=== PATIENT | female | born 2000 | race Asian ===

== ENCOUNTER 2018-01-15 02:05 | Emergency (ER) | payer SELFPAY ==
--- NOTE | 2018-01-15 03:47 | ED ---
Substance Abuse/Use - HPI Summary HPI Summary: HPI LIMITED DUE TO LEVEL 5 CAVEAT ETOH INTOXICATION This patient is a 17 year old F BIBA to [facility] with a chief complaint of ETOH intoxication that occurred [employer]. - History Of Current Complaint Chief Complaint: EDSubstanceAbuse Stated Complaint: ETOH Hx Obtained From: Patient Hx From Patient Unobtainable Due To: Other - ETOH INTOXICATION Ingestion History: Type/Name Of Drug - ETOH Overdose Characteristics: Oral - Allergies/Home Medications Allergies/Adverse Reactions: Allergies Allergy/AdvReac Type Severity Reaction Status Date / Time Unable to Assess Allergy Verified 01/15/18 02:10 Home Medications: Home Medications Unobtainable 01/15/18 [History Confirmed 01/15/18] PMH/Surg Hx/FS Hx/Imm Hx Previously Healthy: No - PMHx limited due to level 5 caveat - ETOH intoxication Infectious Disease History: No Infectious Disease History: Denies: Traveled Outside the [place] in Last 30 Days Review of Systems - ROS Summary Review of Systems Summary: ROS LIMITED DUE TO LEVEL 5 CAVEAT - ETOH INTOXICATION All Other Systems Reviewed And Are Negative: No Physical Exam - Summary Physical Exam Summary: Appearance: nontoxic appearing Skin: Warm, dry, no mottling, no rashes, no contusions HEENT: EOMI, PERRL Neck: No masses on the neck Respiratory: Clear to auscultation, breath sounds present, no rales, no rhonchi , no wheezes Cardiovascular: RRR, pulses are symmetrical in both lower and upper extremities Abdomen: Soft, non-tender Bowel Sounds: Present Musculoskeletal: No CVA tenderness, no obvious deformity, moving all extremities in a grossly normal manner Neurological: CN II-XII Intact Triage Information Reviewed: Yes Vital Signs On Initial Exam: Initial Vitals Temp Pulse Resp BP Pulse Ox 97.9 F 75 24 103/50 96 01/15/18 02:08 01/15/18 02:08 01/15/18 02:08 01/15/18 02:08 01/15/18 02:08 Vital Signs Reviewed: Yes Diagnostics - Vital Signs Vital Signs Temp Pulse Resp BP Pulse Ox 01/15/18 02:08 97.9 F 75 24 103/50 96 - Laboratory Lab Statement: Any lab studies that have been ordered have been reviewed, and results considered in the medical decision making process. Course/Dx - Course Course Of Treatment: LEVEL 5 CAVEAT ETOH INTOXICATION. 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 Physical Exam Findings: Nml. Bloodwork obtained. Patient will be signed out to Dr. Healy upon shift change pending sobering and disposition. The patient is agreeable with this plan. - Diagnoses Provider Diagnoses: Alcohol intoxication Discharge - Sign-Out/Discharge Documenting (check all that apply): Sign-Out Patient Signing out patient TO: Deion Healy - Upon shift change pending sobering and disposition - Discharge Plan Condition: Stable Attestations Scribe Attestation: This is isiah Berrios documenting for attending Viviana Frye MD. User Type: Provider with Scribe Provider Attestation: The documentation recorded by the scribe accurately reflects the service I personally performed and the decisions made by me.
--- NOTE | 2018-01-15 10:55 | ED ---
Progress - Progress Note Progress Note: This is scribe Papa Hawk documenting for attending Deion Healy. Patient was signed out to Dr. Healy via Dr. Frye during shift change at 0700 on 01/15/2018. Patient was awaiting sobriety and disposition. I, Dr. Healy, personally performed the services described in this documentation as scribed in my presence and it is both accurate and complete. Re-Evaluation - Re-Evaluation First Eval Re-Evaluation Time: 10:50 Change: Improved Comment: Patient is now clinically sober. Patient has steady gait. Patient will be going home in taxi. Course/Dx - Course Course Of Treatment: LEVEL 5 CAVEAT ETOH INTOXICATION. This patient is a 17 year old F BIBA to [facility] with a chief complaint of ETOH intoxication that occurred [employer]. Physical Exam Findings: Nml. Bloodwork obtained. Patient will be signed out to Dr. Healy upon shift change pending sobering and disposition. The patient is agreeable with this plan. At 1050, patient is clinically sober. steady gait. Patient will be going home in taxi. Patient will be discharged with a diagnosis of ETOH intoxication. Patient is to follow up with [facility] in 2-3 days. Patient is agreeable with this plan. - Diagnoses Provider Diagnoses: Alcohol intoxication Discharge - Sign-Out/Discharge Documenting (check all that apply): Patient Departure - DISCHARGE - Discharge Plan Condition: Stable Disposition: HOME Patient Education Materials: Alcohol Intoxication (ED), Abuse of Alcohol (ED) Referrals: [facility] - Jose Carlos BRUNNER [Medical Doctor] - 3 Days Additional Instructions: FOLLOW UP WITH [facility] IN 2-3 DAYS. RETURN TO ED FOR ANY NEW OR WORSENING SYMPTOMS.
[2018-01-15 11:17] VITALS: BP 108/78
== END 2018-01-15 11:17 | disposition home or self-care (01) ==
LOC: ED 02:05
DX: F10.129 Alcohol abuse with intoxication, unspecified (principal)
CPT/HCPCS: 36415; 80320; 99282; G0480